=== PATIENT | male | born 1970 | race Caucasian/White ===

== ENCOUNTER 2018-08-31 13:45 | Emergency (ER) | payer SELFPAY ==
[~2018-08-31] VITALS: Ht 188 cm; Wt 106.6 kg
[2018-08-31 13:53] VITALS: Ht 188 cm; Wt 106.6 kg
--- NOTE | 2018-08-31 17:37 | ERD ---
ER Documentation Chief Complaint Chief Complaint hernia more painful than normal. pain started this morning HPI 48-year-old male with a history of abdominal wall hernia presenting for evalu ation of his hernia. Today he noticed that it was sticking out and severely painful which is not been before. He usually causes him some discomfort but never this much pain. While he was waiting to be seen, the patient states that he had severe abdominal pain but was able to push his hernia back in himself. After that, his pain completely resolved. Currently he has no complaints of abdominal pain, nausea, or any other symptoms. He plans to see a doctor outpatient to have surgery done. ROS All systems reviewed and are negative except as per history of present illness. Medications Home Meds No Active Prescriptions or Reported Meds Allergies Allergies: Coded Allergies: No Known Allergy (Unverified , 08/31/18) PMhx/Soc History of Surgery: No Anesthesia Reaction: No Hx Neurological Disorder: No Hx Respiratory Disorders: No Hx Cardiac Disorders: No Hx Psychiatric Problems: No Hx Miscellaneous Medical Probl: Yes (Abdominal wall hernia) Hx Alcohol Use: No Hx Substance Use: No Hx Tobacco Use: No Smoking Status: Never smoker FmHx Family History: No diabetes Physical Exam Vitals Vital Signs Date Temp Pulse Resp B/P (MAP) Pulse Ox O2 O2 Flow FiO2 Time Delivery Rate 08/31/18 97.7 75 18 137/95 98 13:53 (109) Physical Exam Const: No acute distress Resp: Clear to auscultation bilaterally Cardio: Regular rate and rhythm, no murmurs Abd: Soft, non tender, non distended. Ventral abdominal wall defect palpated with reducible hernia. Normal bowel sounds Skin: No petechiae or rashes Back: No midline or flank tenderness Ext: No cyanosis, or edema Neur: Awake and alert Psych: Normal Mood and Affect Procedures/MDM \ Initial Nursing notes reviewed. Previous Medical Records requested via the Electronic Health Record. EMERGENCY DEPARTMENT COURSE / MEDICAL DECISION MAKING: Patient is presenting with abdominal pain that is now resolved after self reduction. Vitals are stable. His abdomen is completely benign. I provided him with an abdominal binder and advised to follow-up with an outpatient surgeon to discuss elective surgery. Strict return precautions were discussed. Patient's blood pressure was elevated (>120/80) but appears stable without evidence of hypertensive emergency or urgency. The patient was counseled about the risks of hypertension and urged to pursue outpatient monitoring and therapy within a week with their primary care physician. Departure Diagnosis: Primary Impression: Hernia of abdominal wall Condition: Stable Patient Instructions: Hernia (Inguinal, Ventral, Umbilical) Additional Instructions: Make an appointment with your primary care doctor to get a referral to a surgeon to have your hernia repaired. If you have any worsening symptoms, return to the ER immediately. GREGORY CHRISTINA MD Aug 31, 2018 17:37
== END 2018-08-31 18:04 | disposition home or self-care (01) ==
LOC: E/R 13:45
DX: K46.9 Unspecified abdominal hernia without obstruction or gangrene (principal)
CPT/HCPCS: 99282